=== PATIENT | female | born 1930 | race Caucasian/White ===

== ENCOUNTER 2018-08-27 12:00 | Inpatient (IN) | payer MEDICARE ==
[~2018-08-27] VITALS: Ht 157.5 cm; Wt 60.6 kg
[2018-08-27 12:25] LABS: BASOPHILS % (AUTO) 0 % (0-10); EOSINOPHILS % (AUTO) 0 % (0-10); HEMATOCRIT 47 % (35-52); HEMOGLOBIN 15.6 G/DL (11.5-16.0); LYMPHOCYTES # (AUTO) 0.4 X 10^3 (1.0-4.0); LYMPHOCYTES % (AUTO) 3 % (12-44); MEAN CORPUSCULAR HEMOGLOBIN 32 PG (25-34); MEAN CORPUSCULAR HGB CONC 34 G/DL (32-36); MEAN CORPUSCULAR VOLUME 95 FL (80-99); MEAN PLATELET VOLUME 11.3 FL (7.4-10.4); MONOCYTES # (AUTO) 1.5 X 10^3 (0.0-1.0); MONOCYTES % (AUTO) 9 % (0-12); NEUTROPHILS # (AUTO) 14.9 X 10^3 (1.8-7.8); NEUTROPHILS % (AUTO) 88 % (42-75); PLATELET COUNT 190 10^3/uL (130-400); RED BLOOD COUNT 4.92 10^6/uL (4.35-5.85); RED CELL DISTRIBUTION WIDTH 14.9 % (10.0-14.5); WHITE BLOOD COUNT 16.8 10^3/uL (4.3-11.0)
[2018-08-27] MEDS ORDERED: NS IV 1000 ML 1,000 ML IV SCH (12:30)
--- NOTE | 2018-08-27 12:31 | ED Fall/Injury ---
General Stated Complaint: FALL Source: patient, EMS Exam Limitations: physical impairment History of Present Illness Date Seen by Provider: Aug 27, 2018 Time Seen by Provider: 12:26 Initial Comments This 87-year-old white female was found on the floor at her home. EMS transported the patient. The placement seen the patient recently for frequent falls. The patient is confused and is unable offer helpful history. Indirectly the family indicated that they saw her last night and she was ambulatory according to the family. The police last saw the patient 2 days ago on Tuesday evening for a fall. The patient is confused and unable offer a helpful history. Allergies and Home Medications Allergies Coded Allergies: No Allergy Information Available (Unverified , 08/27/18) patient confused Patient Home Medication List Home Medication List Reviewed: Yes Review of Systems Review of Systems Constitutional: no symptoms reported Eyes: No Symptoms Reported Ears, Nose, Mouth, Throat: no symptoms reported Respiratory: no symptoms reported Cardiovascular: no symptoms reported Genitourinary: no symptoms reported : No Musculoskeletal: no symptoms reported Skin: no symptoms reported Psychiatric/Neurological: No Symptoms Reported Past Cdgnztj-Etkzjc-Pcsqbb Hx Past Med/Social Hx: Reviewed Nursing Past Med/Soc Hx Physical Exam Vital Signs Capillary Refill : Height, Weight, BMI Height: '" Weight: lbs. oz. kg; BMI Method: General Appearance: cachetic, thin, other (disheveled with soaked urine in the patient's clothing.) HEENT: other (patient demonstrates an area of occipital pressure with indentation where she has been lying on her back for a prolonged period) Neck: non-tender Cardiovascular: regular rate, rhythm Respiratory: lungs clear Gastrointestinal: normal bowel sounds, non tender, soft Back: other (there is a pressure sore located over approximately L3 that is 4 cm in diameter and extends well beyond the subcutaneous tissue. There is no bone palpable in the lumbar decubiti.) Extremities: normal range of motion Neurologic/Psychiatric: no motor/sensory deficits (the patient is able to move 4 extremities but is very weak. She is unable to stand or move herself affectively.) Skin: normal color, warm/dry Progress/Results/Core Measures Results/Orders Lab Results Laboratory Tests Test 08/27/18 12:12 08/27/18 12:43 Range/Units White Blood Count 16.8 H 4.3-11.0 10^3/uL Red Blood Count 4.92 4.35-5.85 10^6/uL Hemoglobin 15.6 11.5-16.0 G/DL Hematocrit 47 35-52 % Mean Corpuscular Volume 95 80-99 FL Mean Corpuscular Hemoglobin 32 25-34 PG Mean Corpuscular Hemoglobin Concent 34 32-36 G/DL Red Cell Distribution Width 14.9 H 10.0-14.5 % Platelet Count 190 130-400 10^3/uL Mean Platelet Volume 11.3 H 7.4-10.4 FL Neutrophils (%) (Auto) 88 H 42-75 % Lymphocytes (%) (Auto) 3 L 12-44 % Monocytes (%) (Auto) 9 0-12 % Eosinophils (%) (Auto) 0 0-10 % Basophils (%) (Auto) 0 0-10 % Neutrophils # (Auto) 14.9 H 1.8-7.8 X 10^3 Lymphocytes # (Auto) 0.4 L 1.0-4.0 X 10^3 Monocytes # (Auto) 1.5 H 0.0-1.0 X 10^3 Eosinophils # (Auto) 0.0 0.0-0.3 10^3/uL Basophils # (Auto) 0.0 0.0-0.1 10^3/uL Neutrophils % (Manual) 91 % Lymphocytes % (Manual) 2 % Monocytes % (Manual) 7 % Blood Morphology Comment NORMAL Sodium Level 145 135-145 MMOL/L Potassium Level 4.8 3.6-5.0 MMOL/L Chloride Level 107 98-107 MMOL/L Carbon Dioxide Level 17 L 21-32 MMOL/L Anion Gap 21 H 5-14 MMOL/L Blood Urea Nitrogen 64 H 7-18 MG/DL Creatinine 1.54 H 0.60-1.30 MG/DL Estimat Glomerular Filtration Rate 32 BUN/Creatinine Ratio 42 Glucose Level 90 70-105 MG/DL Lactic Acid Level 2.33 *H 0.50-2.00 MMOL/L Calcium Level 10.3 H 8.5-10.1 MG/DL Corrected Calcium 9.9 8.5-10.1 MG/DL Total Bilirubin 2.0 H 0.1-1.0 MG/DL Aspartate Amino Transf (AST/SGOT) 215 H 5-34 U/L Alanine Aminotransferase (ALT/SGPT) 88 H 0-55 U/L Alkaline Phosphatase 83 40-136 U/L Total Creatine Kinase 3512 H 29-168 U/L Myoglobin 5398.4 H 10.0-92.0 NG/ML Troponin I < 0.30 <0.30 NG/ML Total Protein 7.5 6.4-8.2 GM/DL Albumin 4.5 3.2-4.5 GM/DL Urine Color YELLOW Urine Clarity SLIGHTLY CLOUDY Urine pH 5 5-9 Urine Specific [place] 1.025 H 1.016-1.022 Urine Protein 2+ H NEGATIVE Urine Glucose (UA) NEGATIVE NEGATIVE Urine Ketones 1+ H NEGATIVE Urine Nitrite NEGATIVE NEGATIVE Urine Bilirubin NEGATIVE NEGATIVE Urine Urobilinogen NORMAL NORMAL MG/DL Urine Leukocyte Esterase 1+ H NEGATIVE Urine RBC (Auto) 2+ H NEGATIVE Urine RBC NONE /HPF Urine WBC 10-20 /HPF Urine Squamous Epithelial Cells 5-10 /HPF Urine Crystals NONE /LPF Urine Bacteria LARGE H /HPF Urine Casts PRESENT /LPF Urine Granular Casts 2-5 H /LPF Urine Mucus MODERATE H /LPF Urine Culture Indicated YES My Orders Orders - GENNY ARGUETA MD Cbc With Automated Diff (08/27/18 12:07) Comprehensive Metabolic Panel (08/27/18 12:07) Myoglobin Serum (08/27/18 12:07) Creatine Kinase (08/27/18 12:07) Troponin I (08/27/18 12:07) Ua Culture If Indicated (08/27/18 12:07) Ct Head/Cervical Spine Wo (08/27/18 12:07) Ekg Tracing (08/27/18 12:07) Blood Culture (08/27/18 12:07) Lactic Acid Analyzer (08/27/18 12:07) Ns Iv 1000 Ml (Sodium Chloride 0.9%) (08/27/18 12:30) Manual Differential (08/27/18 12:12) Urine Culture (08/27/18 12:43) Ceftriaxone For Iv Use (Rocephin For I (08/27/18 13:15) Ceftriaxone For Iv Use (Rocephin For I (08/27/18 13:30) Ns Iv 1000 Ml (Sodium Chloride 0.9%) (08/27/18 13:30) Progress Progress Note : Time: 13:35 Progress Note Patient's evaluation demonstrated evidence of rhabdomyolysis, urinary tract infection, and prerenal failure. A 2 L bolus of normal saline was ordered. 2 g Rocephin IV were given. Dr. Finch was kind enough to admit the patient. Departure Communication (Admissions) Time/Spoke to Admitting Phy: 13:39 Dr. Finch. Impression Primary Impression: Fall Qualified Codes: W19.XXXA - Unspecified fall, initial encounter Additional Impressions: Rhabdomyolysis Qualified Codes: M62.82 - Rhabdomyolysis UTI (urinary tract infection) Qualified Codes: N30.00 - Acute cystitis without hematuria Sepsis Qualified Codes: A41.9 - Sepsis, unspecified organism Disposition: ADMITTED INPATIENT Condition: Improved Admissions Decision to Admit Reason: Admit from ER (General) Decision to Admit/Date: Aug 27, 2018 Time/Decision to Admit Time: 13:41 Departure-Patient Inst. Referrals: NO,LOCAL PHYSICIAN (PCP/Family) Primary Care Physician GENNY ARGUETA MD Aug 27, 2018 12:31
[2018-08-27 12:43] LABS: ALANINE AMINOTRANSFERASE 88 U/L (0-55); ALBUMIN 4.5 GM/DL (3.2-4.5); ALKALINE PHOSPHATASE 83 U/L (40-136); BUN/CREATININE RATIO 42; CALCIUM 10.3 MG/DL (8.5-10.1); CARBON DIOXIDE 17 MMOL/L (21-32); CHLORIDE 107 MMOL/L (98-107); CREATINE KINASE 3512 U/L (29-168); CREATININE SERUM 1.54 MG/DL (0.60-1.30); GFR ESTIMATED 32; GLUCOSE 90 MG/DL (70-105); POTASSIUM 4.8 MMOL/L (3.6-5.0); SODIUM 145 MMOL/L (135-145); TOTAL PROTEIN 7.5 GM/DL (6.4-8.2)
[2018-08-27 12:48] LABS: BILIRUBIN,URINE NEGATIVE (NEGATIVE); CLARITY,URINE SLIGHTLY CLOUDY; COLOR,URINE YELLOW; GLUCOSE, URINE (UA) NEGATIVE (NEGATIVE); KETONES,URINE 1+ (NEGATIVE); LEUKOCYTE ESTERASE ,URINE 1+ (NEGATIVE); NITRITE,URINE NEGATIVE (NEGATIVE); PH,URINE 5 (5-9); PROTEIN,URINE 2+ (NEGATIVE); UROBILINOGEN,URINE NORMAL (NORMAL)
[2018-08-27 13:01] LABS: BACTERIA,URINE LARGE /HPF
[2018-08-27 13:05] LABS: LYMPHOCYTES % (MANUAL) 2 %; MONOCYTES % (MANUAL) 7 %; NEUTROPHILS % (MANUAL) 91 %; RBC MORPH NORMAL
[2018-08-27 13:12] LABS: MYOGLOBIN SERUM 5398.4 NG/ML (10.0-92.0)
[2018-08-27] MEDS ORDERED: cefTRIAXone FOR IV USE 2,000 MG in NS (IVPB) 50 ML IV ONE ×2 (13:15→13:30)
--- NOTE | 2018-08-27 13:31 | Diagnostic Imaging Report ---
PROCEDURE: CT head and CT cervical spine without contrast. TECHNIQUE: Multiple contiguous axial images were obtained through the brain and cervical spine without the use of intravenous contrast. Sagittal and coronal reformations through the cervical spine were then performed. INDICATION: Found down. No priors. FINDINGS: There is no intracranial hemorrhage. There is no hydrocephalus. No focal or generalized cerebral edema. There is no sulcal effacement. The basilar cisterns patent. There are no findings suggestive of an elevation to the intracranial pressures. There is no skull fracture deformity and the sinuses and orbits appeared nonacute. CT cervical spine: Advanced degenerative changes to the discs, endplates, facets and uncovertebral joints. There is left-sided facet ankylosis at the C4-C5 level. Cervical body heights are maintained. No facet joint dislocation. No cervical fracture or paravertebral hematoma. Degenerative changes result in at least moderate canal stenosis at C5-C6. The skull base appeared intact. There is no evidence for paravertebral hemorrhage. There are cervical carotid atherosclerotic vascular calcifications. Visualized thoracic inlet and pulmonary apices nonacute. IMPRESSION: CT head: No hemorrhage, edema, elevated pressures or acute intracranial pathology apparent at CT. CT cervical spine: Degenerative changes with stenosis, but no fracture or acute appearing abnormality. Dictated by: Dictated on workstation # [id number]
[2018-08-27] MEDS: NS IV 1000 ML 1,000 ML IV SCH ×4 (13:39→20:55)
[2018-08-27 15:00] VITALS: BP 138/78
[2018-08-27] MEDS ORDERED: LORazepam INJ 2 MG/ML (ATIVAN) VIAL IV PRN (15:15)
[2018-08-27] MEDS ORDERED: ACETAMINOPHEN 325 MG TABLET PO PRN (15:15)
[2018-08-27 19:00] VITALS: BP 110/73
[2018-08-27] MEDS ORDERED: ONDANSETRON 4 MG (ZOFRAN) ORAL DISSOLVE TAB PO PRN (19:45)
[2018-08-27 20:33] VITALS: BP 112/61
[2018-08-27 21:00] VITALS: BP 105/54
[2018-08-27 22:00] VITALS: BP 99/58
[2018-08-27 23:00] VITALS: BP 109/63
[2018-08-28] VITALS (16 sets, daily range): BP systolic 88–144; BP diastolic 49–73
[2018-08-28] MEDS: NS IV 1000 ML 1,000 ML IV SCH ×3 (03:30→12:47)
[2018-08-28 03:45] LABS: BASOPHILS % (AUTO) 0 % (0-10); EOSINOPHILS % (AUTO) 0 % (0-10); HEMATOCRIT 41 % (35-52); HEMOGLOBIN 13.4 G/DL (11.5-16.0); LYMPHOCYTES # (AUTO) 0.5 X 10^3 (1.0-4.0); LYMPHOCYTES % (AUTO) 4 % (12-44); MEAN CORPUSCULAR HEMOGLOBIN 32 PG (25-34); MEAN CORPUSCULAR HGB CONC 33 G/DL (32-36); MEAN CORPUSCULAR VOLUME 97 FL (80-99); MONOCYTES # (AUTO) 1.3 X 10^3 (0.0-1.0); MONOCYTES % (AUTO) 9 % (0-12); NEUTROPHILS # (AUTO) 13.1 X 10^3 (1.8-7.8); NEUTROPHILS % (AUTO) 88 % (42-75); PLATELET COUNT 54 10^3/uL (130-400); RED BLOOD COUNT 4.21 10^6/uL (4.35-5.85)
[2018-08-28 04:10] LABS: CALCIUM 8.6 MG/DL (8.5-10.1); CREATININE SERUM 0.94 MG/DL (0.60-1.30); MAGNESIUM 2.5 MG/DL (1.8-2.4); PHOSPHORUS 4.1 MG/DL (2.3-4.7); POTASSIUM 4.3 MMOL/L (3.6-5.0)
[2018-08-28] MEDS ORDERED: POTASSIUM CL 10MEQ/50ML IVPB 50 ML IV SCH (06:00)
[2018-08-28] MEDS ORDERED: KCL 20 MEQ TAB (K-DUR) PO SCH (06:00)
[2018-08-28] MEDS ORDERED: MAGNESIUM 1 GM/100 ML IVPB 100 ML IV SCH (06:00)
[2018-08-28] MEDS ORDERED: morphine INJ 4 MG/ML 1 ML (VIAL/SYRINGE) IVP PRN (07:00)
--- NOTE | 2018-08-28 07:00 | Pulmonary Consultation ---
History of Present Illness History of Present Illness Date of Consultation 08/28/18 06:54 Time Seen by Provider: 06:55 Date of Admission History of Present Illness 87yo poor historian presented to ED via EMS after being found on floor confused. The police last saw on Tuesday evening for a fall. Unable to obtain ROS secondary to patients confusion. While in the ED pt was found to have acute UTI with sepsis and rhabdomyolysis. I am consulted for ICU management. Allergies and Home Medications Allergies Coded Allergies: No Known Drug Allergies (Unverified , 08/27/18) Home Medications No Active Prescriptions or Reported Meds Past Xiolnnf-Uxwhgj-Eyohqw Hx Past Med/Social Hx: Reviewed Nursing Past Med/Soc Hx Patient Social History Alcohol Use: Denies Use Recreational Drug Use: No Smoking Status: Never a Smoker Recent Foreign Travel: No Contact w/Someone Who Travel: No Recent Infectious Disease Expo: No Recent Hopitalizations: No Physical Abuse: No Sexual Abuse: No Past Medical History Surgeries: No Respiratory: No Cardiac: No Neurological: No Genitourinary: No Gastrointestinal: No Musculoskeletal: No Endocrine: No HEENT: No Cancer: No Psychosocial: No Integumentary: No Blood Disorders: No Family Medical History Patient reports no known family medical history. Review of Systems Time Seen by Provider: 07:09 Sepsis Event Evaluation Height, Weight, BMI Height: 5'2.00" Weight: 125lbs. 6.0oz. 56.116835wx; 18.3 BMI Method:Estimated Exam Exam Vital Signs Date Time Temp Pulse Resp B/P (MAP) Pulse Ox O2 Delivery O2 Flow Rate FiO2 08/28/18 06:00 82 20 126/58 (80) 96 Room Air 08/28/18 05:00 82 20 116/54 (74) 94 Room Air 08/28/18 04:00 87 17 104/54 (71) 99 Room Air 08/28/18 04:00 97.5 08/28/18 04:00 100 Room Air 08/28/18 03:00 88 17 115/60 (78) 100 Room Air 08/28/18 02:00 89 20 112/54 (73) 100 Room Air 08/28/18 01:00 101 14 88/63 (71) 100 Room Air 08/28/18 01:00 102 08/28/18 00:18 88 22 107/63 (78) 90 Room Air 08/28/18 00:00 100 Room Air 08/28/18 00:00 88 22 107/63 (78) 90 Room Air 08/27/18 23:00 88 22 109/63 (78) 100 Room Air 08/27/18 22:00 89 28 99/58 (72) 100 Room Air 08/27/18 21:00 99 6 105/54 (71) 99 Room Air 08/27/18 20:33 95 24 112/61 (78) 99 Room Air 08/27/18 20:00 99 Room Air 08/27/18 20:00 97.3 08/27/18 19:00 98 9 110/73 (85) 97 Room Air 08/27/18 19:00 92 08/27/18 15:00 96.5 111 15 138/78 (98) 99 Room Air 08/27/18 15:00 Room Air 08/27/18 14:55 68 12 128/83 (98) 99 08/27/18 12:00 96.9 113 16 139/87 (104) 96 Room Air I & O 08/28/18 07:00 Intake Total 4050 ml Output Total 1250 ml Balance 2800 ml Height & Weight Height: 5'2.00" Weight: 125lbs. 6.0oz. 56.366637qz; 18.3 BMI Method:Estimated General Appearance: Other (currently sedated after ativan ) HEENT: PERRL/EOMI, Normal ENT Inspection, Pharynx Normal Neck: Full Range of Motion, Non Tender, Supple Respiratory: Chest Non Tender, Lungs Clear, Normal Breath Sounds, No Accessory Muscle Use, No Respiratory Distress Cardiovascular: Regular Rate, Rhythm, No Edema, No Gallop Capillary Refill: Less Than 3 Seconds Gastrointestinal: normal bowel sounds, non tender, soft Extremity: Normal Capillary Refill, Normal Inspection Skin: Normal Color, Warm/Dry Results Lab Laboratory Tests 08/27/18 12:12 08/28/18 03:18 Assessment/Plan Assessment/Plan s/p multiple falls -fall precautions -SW consulted Rhabdomyolysis -IVF and monitor Oversedation - secondary to Ativan -D/C ativan -will start Risperdal dementia Metabolic lactic acidosis -IVF and monitor UTI with severe sepsis -IVF -Continue Rocephin -Sepsis protocol Afib hx debility -PT/OT increased LFTs -monitor Hospice is consulted, will also consult SW for possible ECF placement. NEGRA BIDR DO Aug 28, 2018 07:00
--- NOTE | 2018-08-28 08:02 | Diagnostic Imaging Report ---
INDICATION: Rhabdomyolysis, fall, dyspnea. TECHNIQUE: Single frontal view of the chest. COMPARISON: None FINDINGS: Lung volumes are large. No focal consolidation is seen. There are scattered nodular densities in the lungs bilaterally, thought to represent calcified granulomas. No pleural effusion or pneumothorax is seen. There is moderate cardiomegaly. Aortic atherosclerosis is present. There are degenerative changes in the shoulders bilaterally with possible bilateral chronic rotator cuff injuries. IMPRESSION: 1. Large lung volumes with moderate cardiomegaly but no acute pulmonary abnormality seen. Dictated by: Dictated on workstation # [id number]
[2018-08-28] MEDS ORDERED: risperiDONE 0.25 MG (RisperDAL) TAB PO SCH (09:00)
[2018-08-28] MEDS ORDERED: LEVO75TA6 PO (09:33)
--- NOTE | 2018-08-28 12:04 | Occ Therapy Progress Note ---
Therapy Progress Note Protocol order received. Chart reviewed. Did check on pt. Pt. asleep. Will not wake for this therapist. Will not continue to disturb at this time. Will monitor as needed. Otherwise, OT services not warranted at this time. 1150 1, visit ANTWAN CHENG OT Aug 28, 2018 12:03
--- NOTE | 2018-08-28 12:13 | History & Physical-Hospitalist ---
History of Present Illness HPI/Chief Complaint The patient is an 87-year-old white female who was found down at her home. Is not known how long this may have been the case but her skin showed unstageable decubiti over the pelvis posteriorly. There are bruises about her legs below the knees. Apparently yesterday she was yelling out loudly. Today on my visit she does not respond at all safe when I palpated her tummy. She appeared largely interested in her down back down. During her stay in the emergency room she was found to have a myoglobin of 5398. Her white blood count at that point in time was 18,800 today it is 15,500. Hemoglobin was 15.6 today at 13.4. This would be compatible with improvement in her state of hydration. Date Seen 08/28/18 Time Seen by a Provider: 12:12 Attending Physician Stephanie Finch MD PCP Hi Mcclendon MD Referring Physician Date of Admission Aug 27, 2018 at 13:30 Home Medications & Allergies Home Medications Reviewed patient Home Medication Reconciliation performed by pharmacy medication reconciliations care technician and/or nursing. Patients Allergies have been reviewed. Allergies Allergies Coded Allergies No Known Drug Allergies (Prnlmxogma03/28/18) Past Mfxkwfz-Wzzdcc-Tdsotc Hx Past Med/Social Hx: Reviewed Nursing Past Med/Soc Hx Patient Social History Alcohol Use: Denies Use Recreational Drug Use: No Smoking Status: Never a Smoker Physical Abuse Screen: No Sexual Abuse: No Recent Foreign Travel: No Contact w/other who traveled: No Recent Hopitalizations: No Recent Infectious Disease Expo: No Past Medical History History of Blood Disorders: No Family History Patient reports no known family medical history. Review of Systems Constitutional: no symptoms reported, see HPI Physical Exam Physical Exam Vital Signs Vital Signs - First Documented 08/27/18 12:00 Temp 96.9 Pulse 113 Resp 16 B/P (MAP) 139/87 (104) Pulse Ox 96 O2 Delivery Room Air Capillary Refill : Less Than 3 Seconds Height, Weight, BMI Height: 5'2.00" Weight: 125lbs. 6.0oz. 56.340775lw; 18.3 BMI Method:Estimated General Appearance: Other (nonresponsive) Eyes: Bilateral Eye Normal Inspection HEENT: Other (lips and tongue are coated and crusty. The tongue, looks like old cracked leather.) Respiratory: Chest Non Tender, Lungs Clear, Normal Breath Sounds, No Accessory Muscle Use, No Respiratory Distress Cardiovascular: Irregularly Irregular Gastrointestinal: Non Tender Extremity: Other Neurologic/Psychiatric: Other (nonresponsive) Lymphatic: No Adenopathy Results Results/Procedures Labs Laboratory Tests 08/27/18 12:12 08/28/18 03:18 Patient resulted labs reviewed. Assessment/Plan Admission Diagnosis Rhabdomyolysis. 2.atrial fibrillation. 3.pressure sores sacral area. Clinical Quality Measures DVT/VTE Risk/Contraindication: Risk Factor Score Per Nursin RFS Level Per Nursing on Admit: 4+=Very High CHARANJIT ORTIZ MD Aug 28, 2018 12:13
[2018-08-28] MEDS ORDERED: FLU QUADRIvalent (5+ YOA) 2018-2019 (AFLURIA) 0.5 ML IM ONE (12:45)
[2018-08-28] MEDS ORDERED: CATHETER FLUSH 10 ML SYR IV PRN (13:00)
[2018-08-28] MEDS ORDERED: cefTRIAXone FOR IV USE 1,000 MG in NS (IVPB) 50 ML IV SCH (13:00)
[2018-08-28] MEDS: fentaNYL INJECTION 100 MCG/2 ML AMP IVP PRN (17:38)
--- NOTE | 2018-08-28 18:38 | Wound Care Assessment ---
Wound Care Assessment Date Seen by Provider: Aug 28, 2018 Time Seen by Provider: 18:32 Chief Complaint Sacral pressure ulcer. HPI The patient is an 87 year old female who has been confused, recently fell at home, and was found down. Evaluation in ER showed rhabdomyolysis and unstageable pressure ulcer of the sacral area. The patient is not able to give intelligible information regarding her medical condition. Dressings and therapies are ordered. Atrial fibrillation, hypothyroidism, dementia. Smoking Status: Never a Smoker Recreational Drug Use: No Alcohol Use: Denies Use Review of Systems Pulmonary: No Dyspnea Cardiovascular: No: Chest Pain Exam Vital Signs Date Time Temp Pulse Resp B/P (MAP) Pulse Ox O2 Delivery O2 Flow Rate FiO2 08/28/18 15:44 Nasal Cannula 2.00 08/28/18 13:00 83 08/28/18 11:50 98 08/28/18 11:00 25 123/62 (82) 08/28/18 04:00 97.5 Capillary Refill : Less Than 3 Seconds General Appearance: cachetic Extremities: other (Multiple bruises.) Skin: other (Sacral ulcer ---- 4.5 x 5.3 x 0.2 cm, base 75% moist black eschar, 25% dusky skin, thin dark drainage c/w necrosis.) Results Laboratory Tests 08/28/18 03:18: White Blood Count 15.0H, Red Blood Count 4.21L, Hemoglobin 13.4, Hematocrit 41, Mean Corpuscular Volume 97, Mean Corpuscular Hemoglobin 32, Mean Corpuscular Hemoglobin Concent 33, Red Cell Distribution Width 15.0H, Platelet Count 54L, Mean Platelet Volume 12.0H, Neutrophils (%) (Auto) 88H, Lymphocytes (%) (Auto) 4L, Monocytes (%) (Auto) 9, Eosinophils (%) (Auto) 0, Basophils (%) (Auto) 0, Neutrophils # (Auto) 13.1H, Lymphocytes # (Auto) 0.5L, Monocytes # (Auto) 1.3H, Eosinophils # (Auto) 0.0, Basophils # (Auto) 0.0, Sodium Level 146H, Potassium Level 4.3, Chloride Level 118#H, Carbon Dioxide Level 13L, Anion Gap 15H, Blood Urea Nitrogen 48H, Creatinine 0.94, Estimat Glomerular Filtration Rate 56, BUN/ Creatinine Ratio 51, Glucose Level 83, Calcium Level 8.6, Phosphorus Level 4.1, Magnesium Level 2.5H, Total Creatine Kinase 1365H Microbiology 08/27/18 Blood Culture - Preliminary, Resulted No growth 08/27/18 Urine Culture - Preliminary, Resulted Culture In Progress Microbiology 08/27/18 Blood Culture - Preliminary, Resulted No growth 08/27/18 Blood Culture - Preliminary, Resulted No growth 08/27/18 Urine Culture - Preliminary, Resulted Culture In Progress Assessment/Plan/Dx 1. Pressure ulcer, sacrum, unstageable, with extensive necrosis evident at the surface. 2. Dementia. 3. Poor nutrition. 4. Rhabdomyolysis. Plan: Low air loss mattress, frequent repositioning, Primo boots. LANRE MARKHAM MD Aug 28, 2018 18:38
[2018-08-29 00:30] VITALS: BP 119/70
[2018-08-29] MEDS: NS IV 1000 ML 1,000 ML IV SCH ×2 (01:49→15:17)
[2018-08-29 04:08] VITALS: BP 125/68
[2018-08-29 08:00] VITALS: BP 168/80
[2018-08-29 12:00] VITALS: BP 139/76
--- NOTE | 2018-08-29 14:57 | Progress Note-Hospitalist ---
Progress Note Progress Notes/Assess & Plan Date Seen 08/29/18 Time Seen by Provider: 14:53 Assessment & Plan The patient looks remarkably better today. She is not able to give any useful account of what caused her to end up on the floor at her home. She does speak in full sentences and answers questions. It is noted that her creatine kinase has fallen from 3512 [id number]. She reports to rather generalized skeletal discomfort. Physical exam: Her lips and tongue are much improved in appearance with no crusting on the lips and less fissuring on the tongue. Lungs are clear to auscultation. CV is regular. Abdomen is scaphoid. Lower extremities show 2+ edema pretibially and bilaterally. There are abrasions and scrapes along the tibia suggesting abrasions as from crawling Impression: Rhabdomyolysis. 2.dehydration. 3.considerable improvement from yesterday to today Focused Exam Lactate Level 08/27/18 12:12: Lactic Acid Level 2.33*H 08/27/18 14:18: Lactic Acid Level 1.20 08/27/18 17:25: Lactic Acid Level 1.03 CHARANJIT ORITZ MD Aug 29, 2018 14:57
--- NOTE | 2018-08-29 15:46 | Physical Therapy Evaluation ---
PT Evaluation-General Medical Diagnosis Admission Date Aug 27, 2018 at 13:30 Medical Diagnosis: rhabdolyolysis/falls Onset Date: Aug 27, 2018 Therapy Diagnosis Therapy Diagnosis: severe weakness/debility Height/Weight Height (Feet): 5 Height (Inches): 2.00 Weight (Pounds): 121 Weight (Ounces): 9.6 Precautions Precautions/Isolations: Fall Prevention, Pressure Ulcer Weight Bear Status Right Lower Extremity: Right Weight Bearing/Tolerated Left Lower Extremity: Left Weight Bearing/Tolerated Referral Physician: Radha Reason for Referral: Evaluation/Treatment Medical History Pertinent Medical History: Atrial Fib Current History EMS secondary to fall at home/noted multiple falls at home with increase confusion Reviewed History: Yes Social History Home: Single Level Current Living Status: Alone Prior/Core FIM Prior Level of Function Functional [place] Measure 0=Not Assessed/NA 4=Minimal Assistance 1=Total Assistance 5=Supervision or Setup 2=Maximal Assistance 6=Modified [place] 3=Moderate Assistance 7=Complete IndependenceIRFPAI Quality Coding Scale 6 Independent with activity with or without an assistive device 5 Patient requires set up or clean up by helper. Patient completes activity by themselves 4 Supervision or touching assist (CGA). Wheeler provide cues , steadying assist 3 The helper provides less than half the effort to complete the activity 2 The helper provides more than half the effort to complete the activity 1 Dependent. The helper does all the effort to complete an activity 7 Patient refused to complete or attempt activity 9 The patient did not perform the activity before the current illness or injury 87 Not attempted due to Medical conditions or safety concerns Bed Mobility: 6 Transfers (B,C,W/C) (FIM): 6 Gait: 6 PT Evaluation-Current Subjective Patient is very tearful and repeats, "Why won't God let me ." Pain Numeric Pain Scale: 10-Worst Possible Pain Location: Right, Left, Soft Tissue Location Body Site: Generalized Pain Description: Acute Objective Patient Orientation: Confused Problem Solving: Poor Attachments: Herndon Catheter, IV ROM/Strength ROM Lower Extremities noted edema bilateral/limited due to pain and edema Strength Lower Extremities 3-/5 grossly Integumentary/Posture Integumentary refer to nursing notes/multiple wounds, head, back, sacrum, buttocks, bilateral LE's Bladder Incontinence: Herndon Cath Posture functional Neuromuscular (Tone, Coordination, Reflexes) severely diminished coordination due to diagnosis Sensory Vision: Unable to Assess Hearing: Functional Sensation Right Lower Extremit: Impaired Sensation Left Lower Extremity: Impaired Transfers Functional [place] Measure 0=Not Assessed/NA 4=Minimal Assistance 1=Total Assistance 5=Supervision or Setup 2=Maximal Assistance 6=Modified [place] 3=Moderate Assistance 7=Complete [place] Transfers (B, C, W/C) (FIM): 1 Scootin Rollin Supine to/from Sit: 1 Sit to/from Stand: 1 sit to stand x 2 to FWW with noted retropulsion and inability to maintain stand Balance Sitting Static: Poor Sitting Dynamic: Poor Standing Static: Poor Standing Dynamic: Poor Assessment/Needs 87 y.o. female, will be seen short term by skilled PT to address functional strength and mobility to improve current LOF. Patient is extremely limited due to confusion and weakness. Rehab Potential: Guarded PT Math Tutor Goals Prison Goals PT Math Tutor Goals Time Frame: Sep 06, 2018 Transfers (B,C,W/C) (FIM): 3 Gait (FIM): 1 Gait distance (FIM): 1=up to 49 ft Distance: 5' Gait Level of Assist: 3 Gait Assistive Device: FWW PT Plan Problem List Problem List: Activity Tolerance, Functional Strength, Safety, Balance, Gait, Transfer, Bed Mobility Treatment/Plan Treatment Plan: Continue Plan of Care Treatment Plan: Bed Mobility, Education, Functional Activity Ramon, Functional Strength, Gait, Safety, Therapeutic Exercise, Transfers Treatment Duration: Sep 06, 2018 Frequency: 5 times per week Estimated Hrs Per Day: .25 hour per day Patient and/or Family Agrees t: Yes Discharge Recommendations Therapy D/C Recommendations: Jail Placement, Residential (TCU/NH) Time/GCodes Time In: 1520 Time Out: 1540 Total Billed Treatment Time: 20 Total Billed Treatment 1 visit EVLowC 20 min G Codes Necessary: GREGG Jean PT Aug 29, 2018 15:46
[2018-08-29 16:11] VITALS: BP 122/69
[2018-08-29 20:00] VITALS: BP 131/64
[2018-08-30 00:30] VITALS: BP 135/65
[2018-08-30 04:00] VITALS: BP 118/63
[2018-08-30] MEDS: NS IV 1000 ML 1,000 ML IV SCH ×2 (04:29→16:47)
[2018-08-30] MEDS: LEVOTHYROXINE 75 MCG (LEVOTHROID) TABLET PO SCH (06:46)
[2018-08-30 08:00] VITALS: BP 128/67
--- NOTE | 2018-08-30 09:49 | Physical Therapy Daily Note ---
PT Daily Note-Current Subjective Patient in bed pre tx, agrees to PT reluctantly, no complaints of pain. Patient has a large stain on her pillow from a wound on the back of her head. Appearance Patient in wheelchair post tx, patient is going to have a shower with nursing. Mental Status Patient Orientation: Person, Confused Attachments: Oxygen, IV Transfers Functional [place] Measure 0=Not Assessed/NA 4=Minimal Assistance 1=Total Assistance 5=Supervision or Setup 2=Maximal Assistance 6=Modified [place] 3=Moderate Assistance 7=Complete IndependenceIRFPAI Quality Coding Scale 6 Independent with activity with or without an assistive device 5 Patient requires set up or clean up by helper. Patient completes activity by themselves 4 Supervision or touching assist (CGA). [place] provide cues , steadying assist 3 The helper provides less than half the effort to complete the activity 2 The helper provides more than half the effort to complete the activity 1 Dependent. The helper does all the effort to complete an activity 7 Patient refused to complete or attempt activity 9 The patient did not perform the activity before the current illness or injury 88 Not attempted due to Medical conditions or safety concerns Transfers (B, C, W/C) (FIM): 2 Scootin Rollin Supine to/from Sit: 2 Sit to/from Stand: 2 Bed to/from Chair: 2 Patient max assist for bed mobility and transfers, she needs a lot of encouragement to participate and to help with her arms. Patient was able to stand at the edge of the bed for about 5 min. Weight Bearing Right Lower Extremity: Right Weight Bearing/Tolerated Left Lower Extremity: Left Weight Bearing/Tolerated Gait Training Gait (FIM): 1 Distance: 2' Gait Level of Assist: 2 Gait Persons Needed: 2 Gait Assistive Device: FWW Patient was able to step a few steps toward the head of the bed with max assist Treatments bed mobility and transfers, ambulation Assessment Current Status: Fair Progress improved bed mobility and transfers from dependent to max assist PT Mcfp Goals Mcfp Goals PT Mcfp Goals Time Frame: Sep 06, 2018 Transfers (B,C,W/C) (FIM): 3 Gait (FIM): 1 Gait distance (FIM): 1=up to 49 ft Distance: 5' Gait Level of Assist: 3 Gait Assistive Device: FWW PT Plan Problem List Problem List: Activity Tolerance, Functional Strength, Safety, Balance, Gait, Transfer, Bed Mobility, ROM Treatment/Plan Treatment Plan: Continue Plan of Care Treatment Plan: Bed Mobility, Education, Functional Activity Ramon, Functional Strength, Gait, Safety, Therapeutic Exercise, Transfers Treatment Duration: Sep 06, 2018 Frequency: 5 times per week Estimated Hrs Per Day: .25 hour per day Patient and/or Family Agrees t: Yes Safety Risks/Education Patient Education: Gait Training, Transfer Techniques, Correct Positioning, Safety Issues Teaching Recipient: Patient Teaching Methods: Demonstration, Discussion Response to Teaching: Reinforcement Needed Time/GCodes Time In: 924 Time Out: 944 Total Billed Treatment Time: 20 Total Billed Treatment 1 visit FA 20' FELIPA VIGIL PT Aug 30, 2018 09:49
[2018-08-30 10:37] LABS: BASOPHILS % (AUTO) 0 % (0-10); EOSINOPHILS # (AUTO) 0.1 10^3/uL (0.0-0.3); EOSINOPHILS % (AUTO) 1 % (0-10); HEMATOCRIT 44 % (35-52); HEMOGLOBIN 14.5 G/DL (11.5-16.0); LYMPHOCYTES # (AUTO) 0.9 X 10^3 (1.0-4.0); LYMPHOCYTES % (AUTO) 10 % (12-44); MEAN CORPUSCULAR HEMOGLOBIN 32 PG (25-34); MEAN CORPUSCULAR HGB CONC 33 G/DL (32-36); MEAN CORPUSCULAR VOLUME 96 FL (80-99); MEAN PLATELET VOLUME 10.6 FL (7.4-10.4); MONOCYTES # (AUTO) 0.6 X 10^3 (0.0-1.0); MONOCYTES % (AUTO) 7 % (0-12); NEUTROPHILS # (AUTO) 7.7 X 10^3 (1.8-7.8); NEUTROPHILS % (AUTO) 83 % (42-75); PLATELET COUNT 167 10^3/uL (130-400); RED BLOOD COUNT 4.61 10^6/uL (4.35-5.85); RED CELL DISTRIBUTION WIDTH 15.1 % (10.0-14.5); WHITE BLOOD COUNT 9.3 10^3/uL (4.3-11.0)
[2018-08-30 10:59] LABS: ALANINE AMINOTRANSFERASE 68 U/L (0-55); ALBUMIN 3.4 GM/DL (3.2-4.5); ALKALINE PHOSPHATASE 72 U/L (40-136); BILIRUBIN,TOTAL 1.3 MG/DL (0.1-1.0); BUN/CREATININE RATIO 30; CALCIUM 8.8 MG/DL (8.5-10.1); CARBON DIOXIDE 23 MMOL/L (21-32); CHLORIDE 115 MMOL/L (98-107); CREATINE KINASE 110 U/L (29-168); CREATININE SERUM 0.69 MG/DL (0.60-1.30); GFR ESTIMATED > 60; GLUCOSE 103 MG/DL (70-105); POTASSIUM 3.7 MMOL/L (3.6-5.0); SODIUM 145 MMOL/L (135-145); TOTAL PROTEIN 5.8 GM/DL (6.4-8.2)
[2018-08-30 12:00] VITALS: BP 134/60
[2018-08-30] MEDS: ACETAMINOPHEN 500 MG TAB (TYLENOL) PO PRN (12:55)
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
[2018-08-30 16:00] VITALS: BP 119/61
[2018-08-30 19:00] VITALS: BP 132/71
[2018-08-31 00:09] VITALS: BP 117/67
[2018-08-31] MEDS: fentaNYL INJECTION 100 MCG/2 ML AMP IVP PRN (01:08)
[2018-08-31 04:10] VITALS: BP 119/73
[2018-08-31] MEDS: NS IV 1000 ML 1,000 ML IV SCH ×2 (05:28→18:45)
[2018-08-31] MEDS: LEVOTHYROXINE 75 MCG (LEVOTHROID) TABLET PO SCH (06:36)
[2018-08-31 08:00] VITALS: BP 127/72
--- NOTE | 2018-08-31 10:50 | Physical Therapy Daily Note ---
PT Daily Note-Current Subjective Patient in bed pre tx, is reluctant to participate in PT, states she hurts all over. Appearance Patient in recliner post tx with legs elevated, nursing in room. Mental Status Patient Orientation: Person, Confused Attachments: IV Transfers Functional [place] Measure 0=Not Assessed/NA 4=Minimal Assistance 1=Total Assistance 5=Supervision or Setup 2=Maximal Assistance 6=Modified [place] 3=Moderate Assistance 7=Complete IndependenceIRFPAI Quality Coding Scale 6 Independent with activity with or without an assistive device 5 Patient requires set up or clean up by helper. Patient completes activity by themselves 4 Supervision or touching assist (CGA). [place] provide cues , steadying assist 3 The helper provides less than half the effort to complete the activity 2 The helper provides more than half the effort to complete the activity 1 Dependent. The helper does all the effort to complete an activity 7 Patient refused to complete or attempt activity 9 The patient did not perform the activity before the current illness or injury 88 Not attempted due to Medical conditions or safety concerns Transfers (B, C, W/C) (FIM): 1 Scootin Rollin Supine to/from Sit: 1 Sit to/from Stand: 2 Bed to/from Chair: 2 Weight Bearing Right Lower Extremity: Right Weight Bearing/Tolerated Left Lower Extremity: Left Weight Bearing/Tolerated Treatments bed mobility and transfers, patient would not participate in LE exercises, she states she does them on her own Assessment Current Status: Poor Progress Patient participates very little with transfers PT Short Term Goals Short Term Goals Transfers (B,C,W/C) (FIM): 3 PT Intermediate Goals Intermediate Goals PT Intermediate Goals Time Frame: Sep 06, 2018 Transfers (B,C,W/C) (FIM): 3 Gait (FIM): 1 Gait distance (FIM): 1=up to 49 ft Distance: 5' Gait Level of Assist: 3 Gait Assistive Device: FWW PT Plan Problem List Problem List: Activity Tolerance, Functional Strength, Safety, Balance, Gait, Transfer, Bed Mobility, ROM Treatment/Plan Treatment Plan: Continue Plan of Care Treatment Plan: Bed Mobility, Education, Functional Activity Ramon, Functional Strength, Gait, Safety, Therapeutic Exercise, Transfers Treatment Duration: Sep 06, 2018 Frequency: 5 times per week Estimated Hrs Per Day: .25 hour per day Patient and/or Family Agrees t: Yes Safety Risks/Education Patient Education: Transfer Techniques, Correct Positioning, Safety Issues Teaching Recipient: Patient Teaching Methods: Demonstration, Discussion Response to Teaching: Reinforcement Needed Time/GCodes Time In: 1025 Time Out: 1140 Total Billed Treatment Time: 15 Total Billed Treatment 1 visit FA FELIPA WRIGHT PT Aug 31, 2018 10:50
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
[2018-08-31] MEDS ORDERED: ACET-77 PO (11:46)
--- NOTE | 2018-08-31 11:47 | Discharge Inst-Skilled Nursing ---
Discharge Inst-Skilled NF Patient Instructions Patient Problems: Fall s/p rhabdo Frail status Consult/Follow Up/Orders Follow Up Appt.: Dr Mcclendon in 1 week Skilled NF Admit to: Via [facility] [place] Certification ([facility]) I certify that SNF services are required to be given on an inpatient basis because of the above named patient's need for longterm care on a continuing basis for the conditions(s) for which he/she was receiving inpatient hospital services prior to his/her transfer to the SNF. [facility]itent[facility] Facility Order: Nursing Services, [facility] [place] [facility]-Evaluate & Treat, Physical Therapy-Evaluate & Treat Discharge Diet: No Restrictions Daily Activity as Tolerated: Yes New & Resume Previous Orders Melania Rosales Aug 31, 2018 11:46 Pneu Vac Indicated: Yes MELANIA ROSALES DO Aug 31, 2018 11:47
[2018-08-31 12:00] VITALS: BP 137/69
--- NOTE | 2018-08-31 14:00 | Occupational Ther Daily Note ---
OT Current Status-Daily Note Subjective Pt. does not report pain this session. Does state that she has difficulty with her grasp. Appearance Pt. is up in chair. Agrees to work with OT. Mental Status/Objective Patient Orientation: Person (Pt. states that she remembers this clinician, but does not remember what she does.) Functional [place] Measure 0=Not Assessed/NA 4=Minimal Assistance 1=Total Assistance 5=Supervision or Setup 2=Maximal Assistance 6=Modified [place] 3=Moderate Assistance 7=Complete [place] Attachments: IV Other Treatment Pt. is up in chair. States that she has already eaten. OT asks her if she fed herself. States that she did not because her arms weren't long enough. PT allows OT to provided PROM to bilateral UE. Completed gentle PROM to bilateral shoulders, elbows, wrists, fingers in all planes. Completed shoulder flexion x 10 reps passively. Noted right shoulder able to achieve 90 degrees, and left shoulder able to achieve 120 degrees. Pt. is able to begin actively flexing elbows fully, but tires quickly and slowly quits ranging in full range. Pt. is able to demonstrate finger flexion with fist, but states that she has difficulty holding utensils to eat with. OT leaves room and does come back at later time with built up fork and foam handle for spoon to facilitate functional grasp with utensils. OT encourages pt. to hold water mug to bring to mouth for drink. Pt. closes eyes and has difficulty participating in this task. OT brings straw to mouth and pt. drinks. Pt. is educated about using pillows again this date under elbows to prop up arms to assist with feeding. Pt. is also encouraged to hold one thing at a time in one hand to eat with the other hand if the table is too high to reach to scoop food. Pt. verbalizes understanding. Education OT Patient Education: Correct positioning, Modified ADL techniques, Progress toward Goal/Update tx plan, Purpose of tx/functional activities, Reviewed precautions, Rehab process, Use of adapted equipment Teaching Recipient: Patient Teaching Methods: Demonstration, Discussion Response to Teaching: Verbalize Understanding OT Short Term Goals Short Term Goals Time Frame: Sep 06, 2018 Eating(FIM): 4 Grooming(FIM): 3 Toileting(FIM): 3 Transfers (B,C,W/C) (FIM): 3 Toilet/Commode Transfer(FIM): 3 Additional Short Term Goals: 1-Demonstrate ADL Tasks, 2-Verbalize Understanding , 3-ImproveStrength/Ramon 1=Demonstrate adherence to instructed precautions during ADL tasks. 2=Patient will verbalize/demonstrate understanding of assistive devices/ modifications for ADL. 3=Patient will improve strength/tolerance for activity to enable patient to perform ADL's. OT Detention Goals Detention Goals Time Frame: Sep 13, 2018 Eating (FIM): 5 Grooming(FIM): 4 Toileting(FIM): 5 Transfers (B,C,W/C) (FIM): 5 Toilet/Commode Transfer(FIM): 5 Additional Goals: 1-Demonstrate ADL Tasks, 2-Verbalize Understanding, 3- ImproveStrength/Ramon 1=Demonstrate adherence to instructed precautions during ADL tasks. 2=Patient will verbalize/demonstrate understanding of assistive devices/ modifications for ADL. 3=Patient will improve strength/tolerance for activity to enable patient to perform ADL's. OT Education/Plan Problem List/Assessment Assessment: Decreased Activ Tolerance, Decreased UE Strength, Impaired Cognition, Impaired Coordination, Impaired I ADL's, Impaired Self-Care Skills, Restricted Funct UE ROM Discharge Recommendations Plan/Recommendations: Continue POC Therapy D/C Recommendations: 24 hr Supervision Treatment Plan/Plan of Care Treatment,Training & Education: Yes Patient would benefit from OT for education, treatment and training to promote independence in ADL's, mobility, safety and/or upper extremity function for ADL' s. Plan of Care: ADL Retraining, Functional Mobility, UE Funct Exercise/Act Treatment Duration: Sep 13, 2018 Frequency: 5 times per week Estimated Hrs Per Day: .25 hour per day Agreement: Yes Rehab Potential: Guarded Time/GCodes Start Time: 11:15 Stop Time: 12:00 Total Time Billed (hr/min): 25 Billed Treatment Time 3249-1135 1, Ex x 15minutes 6206-1902 1, ADL x 10minutes ANTWAN CHENG OT Aug 31, 2018 14:00
[2018-08-31 15:55] VITALS: BP 135/65
[2018-08-31 20:59] VITALS: BP 128/72
[2018-08-31] MEDS: ACETAMINOPHEN 500 MG TAB (TYLENOL) PO PRN (21:54)
[2018-09-01 00:21] VITALS: BP 124/64
[2018-09-01] MEDS: fentaNYL INJECTION 100 MCG/2 ML AMP IVP PRN (00:32)
[2018-09-01 04:05] VITALS: BP 129/66
[2018-09-01] MEDS: LEVOTHYROXINE 75 MCG (LEVOTHROID) TABLET PO SCH (05:39)
[2018-09-01 08:00] VITALS: BP 143/83
--- NOTE | 2018-09-01 10:13 | Occupational Ther Daily Note ---
OT Current Status-Daily Note Subjective Pt alert, however required encouragement to participate in OT services this date. Pain Numeric Pain Scale: 2 Location Body Site: Back Mental Status/Objective Functional Bruning Measure 0=Not Assessed/NA 4=Minimal Assistance 1=Total Assistance 5=Supervision or Setup 2=Maximal Assistance 6=Modified Bruning 3=Moderate Assistance 7=Complete Bruning ADL-Treatment Eating (FIM): 5 (Pt was having difficulty with self feeding due to positioning deficits and decreased seaman officer strength. Pt assisted with re-positioning to improve her safety and independence with self feeding tasks. Pt educated on use of built up utensil to improve her ability to perform self feeding tasks. ) Other Treatment Pt participated in gentle AROM through gross UE planes of motion to tolerated range. Pt with limited AROM through shoulder flexion and abduction. Pt tolerated PROM through normal planes of motion through BUE shoulder planes of motion. Education OT Patient Education: Correct positioning Teaching Recipient: Patient OT Short Term Goals Short Term Goals Time Frame: Sep 06, 2018 Eating(FIM): 4 Grooming(FIM): 3 Toileting(FIM): 3 Transfers (B,C,W/C) (FIM): 3 Toilet/Commode Transfer(FIM): 3 Additional Short Term Goals: 1-Demonstrate ADL Tasks, 2-Verbalize Understanding , 3-ImproveStrength/Ramon 1=Demonstrate adherence to instructed precautions during ADL tasks. 2=Patient will verbalize/demonstrate understanding of assistive devices/ modifications for ADL. 3=Patient will improve strength/tolerance for activity to enable patient to perform ADL's. OT Recruiting Scheduler Goals Mcc Goals Time Frame: Sep 13, 2018 Eating (FIM): 5 Grooming(FIM): 4 Toileting(FIM): 5 Transfers (B,C,W/C) (FIM): 5 Toilet/Commode Transfer(FIM): 5 Additional Goals: 1-Demonstrate ADL Tasks, 2-Verbalize Understanding, 3- ImproveStrength/Ramon 1=Demonstrate adherence to instructed precautions during ADL tasks. 2=Patient will verbalize/demonstrate understanding of assistive devices/ modifications for ADL. 3=Patient will improve strength/tolerance for activity to enable patient to perform ADL's. OT Education/Plan Discharge Recommendations Plan/Recommendations: Continue POC Treatment Plan/Plan of Care Patient would benefit from OT for education, treatment and training to promote independence in ADL's, mobility, safety and/or upper extremity function for ADL' s. Plan of Care: ADL Retraining, Functional Mobility, UE Funct Exercise/Act Treatment Duration: Sep 13, 2018 Frequency: 5 times per week Estimated Hrs Per Day: .25 hour per day Agreement: Yes Rehab Potential: Guarded Time/GCodes Start Time: 09:43 Stop Time: 10:12 Total Time Billed (hr/min): 29 Billed Treatment Time ADL1, TE1 YAYO EVERETT OT Sep 01, 2018 10:13
--- NOTE | 2018-09-01 11:39 | Discharge Summary-Hospitalist ---
Diagnosis/Chief Complaint Date of Admission Aug 27, 2018 at 13:30 Date of Discharge Discharge Date: Sep 01, 2018 Admission Diagnosis Rhabdomyolysis. 2.atrial fibrillation. 3.pressure sores sacral area. Discharge Diagnosis (1) Sepsis Status: Resolved (2) Fall Status: Acute (3) Rhabdomyolysis Status: Resolved (4) UTI (urinary tract infection) Status: Acute Discharge Summary Discharge Physical Exam Allergies: Coded Allergies: No Known Drug Allergies (Unverified , 08/27/18) Vitals & I&Os Vital Signs Date Time Temp Pulse Resp B/P (MAP) Pulse Ox O2 Delivery O2 Flow Rate FiO2 09/01/18 08:00 98.6 85 18 143/83 (103) 96 Room Air 08/31/18 12:00 1.00 General Appearance: No Apparent Distress, WD/WN, Cachetic Respiratory: Chest Non Tender, Lungs Clear, Normal Breath Sounds, No Accessory Muscle Use, No Respiratory Distress Cardiovascular: Regular Rate, Rhythm, No Edema, No Gallop, No JVD, No Murmur, Normal Peripheral Pulses Neurologic/Psychiatric: Alert, Oriented x3, No Motor/Sensory Deficits, Normal Mood/Affect Hospital Course Hospital course: patient was admitted for sepsis from fall and UTI while lying in her feces for an undetermined amount of time. Social issues were managed by SW. IV abx maintained along with supportive care. She was so weak she required NHP which I suspect will be long-term. Pt was DC in improved condition but overall very debilitated. Labs (last 24 hrs) Microbiology 08/27/18 Blood Culture - Final, Complete No growth 08/27/18 MRSA Screen - Final, Complete MRSA not isolated 08/27/18 Urine Culture - Final, Complete Strep anginosus Lactobacillus species Patient resulted labs reviewed. Discussion & Recommendations Discharge Planning: <30 minutes discharge planning Discharge Home Medications: Active Scripts Active Acetaminophen 500 Mg Tablet 500 Mg PO Q6H PRN 30 Days Reported Levothyroxine Sodium 75 Mcg Tablet 75 Mcg PO DAILY Instructions to patient/family Please see electronic discharge instructions given to patient. Clinical Quality Measures DVT/VTE Risk/Contraindication: Risk Factor Score Per Nursin RFS Level Per Nursing on Admit: 4+=Very High Problem Qualifiers (1) Sepsis: Sepsis type: sepsis due to unspecified organism Qualified Codes: A41.9 - Sepsis, unspecified organism (2) Fall: Encounter type: initial encounter Qualified Codes: W19.XXXA - Unspecified fall, initial encounter (3) Rhabdomyolysis: Rhabdomyolysis type: non-traumatic Qualified Codes: M62.82 - Rhabdomyolysis (4) UTI (urinary tract infection): Urinary tract infection type: acute cystitis Hematuria presence: without hematuria Qualified Codes: N30.00 - Acute cystitis without hematuria IMER NIX DO Sep 01, 2018 11:39
== END 2018-09-01 13:57 | DRG 872 ==
LOC: ER 12:11 → ICU 13:30 → EEVIPCON 13:30 → 4TH 08-28 17:55
PROVIDERS: ADMIT Family Medicine; ATTEND Family Medicine
DX: A41.9 Sepsis, unspecified organism (principal); N30.00 Acute cystitis without hematuria; M62.82 Rhabdomyolysis; E87.2 Acidosis; R64 Cachexia; I96 Gangrene, not elsewhere classified; L89.150 Pressure ulcer of sacral region, unstageable; E86.0 Dehydration; Z66 Do not resuscitate; F03.90 Unspecified dementia, unspecified severity, without behavioral disturbance, psychotic disturbance, mood disturbance, and anxiety; S80.11XA Contusion of right lower leg, initial encounter; S80.12XA Contusion of left lower leg, initial encounter; R53.81 Other malaise; I48.91 Unspecified atrial fibrillation; E03.9 Hypothyroidism, unspecified; B95.4 Other streptococcus as the cause of diseases classified elsewhere; R40.0 Somnolence; T42.4X5A Adverse effect of benzodiazepines, initial encounter; W19.XXXA Unspecified fall, initial encounter
CPT/HCPCS: 36415; 51702; 70450; 71045; 72125; 80048; 80053; 81000; 82550; 83605; 83735; 83874; 84100; 84484; 85007; 85025; 85027; 87040; 87077; 87081; 87088; 93005; 94760; 96361; 96365

== ENCOUNTER → 2018-09-25 | Outpatient (CLI) | payer MEDICARE ==
[~2018-09-25] MED LIST: ACET-77 PO; ALPR0.25 PO; LEVO75TA6 PO
== END ==
LOC: WOUNDCARE 13:51
PROVIDERS: ATTEND Nurse Practitioner
DX: L89.153 Pressure ulcer of sacral region, stage 3 (principal); S01.00XA Unspecified open wound of scalp, initial encounter
CPT/HCPCS: 99213

== ENCOUNTER 2018-09-26 12:10 | Emergency (ER) | payer MEDICARE ==
[~2018-09-26] VITALS: Ht 162.6 cm; Wt 48.1 kg
[~2018-09-26 12:10] MED LIST changes: -ALPR0.25 PO
[2018-09-26] MEDS ORDERED: ALPRAZolam 0.5 MG (XANAX) TAB ONE (12:37)
[2018-09-26 13:34] LABS: BASOPHILS % (AUTO) 1 % (0-10); EOSINOPHILS # (AUTO) 0.1 10^3/uL (0.0-0.3); EOSINOPHILS % (AUTO) 2 % (0-10); HEMATOCRIT 44 % (35-52); HEMOGLOBIN 14.9 G/DL (11.5-16.0); LYMPHOCYTES % (AUTO) 13 % (12-44); MEAN CORPUSCULAR HEMOGLOBIN 31 PG (25-34); MEAN CORPUSCULAR HGB CONC 34 G/DL (32-36); MEAN CORPUSCULAR VOLUME 93 FL (80-99); MEAN PLATELET VOLUME 9.6 FL (7.4-10.4); MONOCYTES # (AUTO) 0.8 X 10^3 (0.0-1.0); MONOCYTES % (AUTO) 11 % (0-12); NEUTROPHILS # (AUTO) 5.6 X 10^3 (1.8-7.8); NEUTROPHILS % (AUTO) 74 % (42-75); PLATELET COUNT 342 10^3/uL (130-400); RED BLOOD COUNT 4.78 10^6/uL (4.35-5.85); RED CELL DISTRIBUTION WIDTH 14.8 % (10.0-14.5); WHITE BLOOD COUNT 7.5 10^3/uL (4.3-11.0)
[2018-09-26 13:55] LABS: ALANINE AMINOTRANSFERASE 15 U/L (0-55); ALBUMIN 3.7 GM/DL (3.2-4.5); ALKALINE PHOSPHATASE 103 U/L (40-136); BILIRUBIN,TOTAL 0.8 MG/DL (0.1-1.0); BUN/CREATININE RATIO 24; CALCIUM 9.8 MG/DL (8.5-10.1); CARBON DIOXIDE 22 MMOL/L (21-32); CHLORIDE 105 MMOL/L (98-107); GFR ESTIMATED > 60; GLUCOSE 101 MG/DL (70-105); POTASSIUM 4.7 MMOL/L (3.6-5.0); SODIUM 140 MMOL/L (135-145); TOTAL PROTEIN 6.8 GM/DL (6.4-8.2)
[2018-09-26] MEDS ORDERED: ALPR0.25 PO (15:09)
--- NOTE | 2018-09-26 15:09 | ED General ---
General Chief Complaint: Psych/Social Disorder Stated Complaint: PANIC ATTACK Nursing Triage Note: PT ARRIVED FORM NH W CO OF ANXIETY AND PANIC ATTACK. PT IS TEARFUL AT THIS X Nursing Sepsis Screen: No Definite Risk History of Present Illness Date Seen by Provider: Sep 26, 2018 Time Seen by Provider: 12:30 Initial Comments 88-year-old female presents for anxiety. She is alert, coherent and reports that she wishes she could return to her home. She has no family members that are able to assist with her care there. She is a resident at [facility]. She was recently discontinued on her Xanax. She is being treated for a pressure ulcer to her coccyx by wound care. Timing/Duration: 1 Hour Severity: Mild Associated Systoms: Denies Symptoms Allergies and Home Medications Allergies Coded Allergies: No Known Drug Allergies (Unverified , 08/27/18) Home Medications Acetaminophen 500 Mg Tablet, 500 MG PO Q6H PRN for PAIN-MILD Prescribed by: IMER NIX on 08/31/18 1146 Alprazolam 0.25 Mg Tablet, 0.25 MG PO Q6H Prescribed by: ADRIEL BENITO on 09/26/18 1509 Levothyroxine Sodium 75 Mcg Tablet, 75 MCG PO DAILY, (Reported) Patient Home Medication List Home Medication List Reviewed: Yes Review of Systems Review of Systems Constitutional: no symptoms reported, see HPI Skin: see HPI, other (pressure ulcer to coccyx) Psychiatric/Neurological: See HPI, Anxiety Past Qyaqqmz-Szwqpa-Ibjbah Hx Past Med/Social Hx: Reviewed Nursing Past Med/Soc Hx Patient Social History Alcohol Use: Denies Use Recreational Drug Use: No Smoking Status: Never a Smoker Recent Foreign Travel: No Contact w/Someone Who Travel: No Recent Infectious Disease Expo: No Recent Hopitalizations: Yes Physical Abuse: No Sexual Abuse: No Past Medical History Surgeries: No Respiratory: No Cardiac: No Neurological: No Genitourinary: No Gastrointestinal: No Musculoskeletal: No Endocrine: No HEENT: No Cancer: No Psychosocial: No Integumentary: No Blood Disorders: No Family Medical History Patient reports no known family medical history. Physical Exam Vital Signs Vital Signs - First Documented 09/26/18 12:15 Temp 97.2 Pulse 102 Resp 18 B/P (MAP) 137/104 (115) Pulse Ox 97 Capillary Refill : Less Than 3 Seconds Height, Weight, BMI Height: 5'4.00" Weight: 106lbs. 11.2oz. 48.958345os; 18.3 BMI Method:Stated General Appearance: No Apparent Distress, WD/WN, Anxious Neck: Full Range of Motion, Normal Inspection, Non Tender, Supple Respiratory: Chest Non Tender, Lungs Clear, Normal Breath Sounds Cardiovascular: Regular Rate, Rhythm, No Edema, No Murmur, Normal Peripheral Pulses Gastrointestinal: Normal Bowel Sounds, Non Tender, Soft Extremity: Normal Capillary Refill, Normal Inspection, Normal Range of Motion, Non Tender Neurologic/Psychiatric: Alert, Oriented x3, Other (patient tearful and anxious at times) Skin: Normal Color, Warm/Dry, Other (stage II pressure ulcer to the coccyx. ) Progress/Results/Core Measures Suspected Sepsis Recent Fever Within 48 Hours: No Infection Criteria Present: None New/Unexplained Altered Menta: No Sepsis Screen: No Definite Risk SIRS Temperature:97.2 Pulse: 102 Respiratory Rate: 18 Laboratory Tests 09/26/18 13:27: White Blood Count 7.5 Blood Pressure 137 /104 Mean: 115 Laboratory Tests 09/26/18 13:27: Creatinine 0.70, Platelet Count 342, Total Bilirubin 0.8 Results/Orders Lab Results Laboratory Tests Test 09/26/18 13:27 Range/Units White Blood Count 7.5 4.3-11.0 10^3/uL Red Blood Count 4.78 4.35-5.85 10^6/uL Hemoglobin 14.9 11.5-16.0 G/DL Hematocrit 44 35-52 % Mean Corpuscular Volume 93 80-99 FL Mean Corpuscular Hemoglobin 31 25-34 PG Mean Corpuscular Hemoglobin Concent 34 32-36 G/DL Red Cell Distribution Width 14.8 H 10.0-14.5 % Platelet Count 342 130-400 10^3/uL Mean Platelet Volume 9.6 7.4-10.4 FL Neutrophils (%) (Auto) 74 42-75 % Lymphocytes (%) (Auto) 13 12-44 % Monocytes (%) (Auto) 11 0-12 % Eosinophils (%) (Auto) 2 0-10 % Basophils (%) (Auto) 1 0-10 % Neutrophils # (Auto) 5.6 1.8-7.8 X 10^3 Lymphocytes # (Auto) 1.0 1.0-4.0 X 10^3 Monocytes # (Auto) 0.8 0.0-1.0 X 10^3 Eosinophils # (Auto) 0.1 0.0-0.3 10^3/uL Basophils # (Auto) 0.0 0.0-0.1 10^3/uL Sodium Level 140 135-145 MMOL/L Potassium Level 4.7 3.6-5.0 MMOL/L Chloride Level 105 98-107 MMOL/L Carbon Dioxide Level 22 21-32 MMOL/L Anion Gap 13 5-14 MMOL/L Blood Urea Nitrogen 17 7-18 MG/DL Creatinine 0.70 0.60-1.30 MG/DL Estimat Glomerular Filtration Rate > 60 BUN/Creatinine Ratio 24 Glucose Level 101 70-105 MG/DL Calcium Level 9.8 8.5-10.1 MG/DL Corrected Calcium 10.0 8.5-10.1 MG/DL Total Bilirubin 0.8 0.1-1.0 MG/DL Aspartate Amino Transf (AST/SGOT) 23 5-34 U/L Alanine Aminotransferase (ALT/SGPT) 15 0-55 U/L Alkaline Phosphatase 103 40-136 U/L Total Protein 6.8 6.4-8.2 GM/DL Albumin 3.7 3.2-4.5 GM/DL My Orders Orders - ADRIEL BENITO Alprazolam Tablet (Xanax Tablet) (09/26/18 12:37) Cbc With Automated Diff (09/26/18 13:00) Comprehensive Metabolic Panel (09/26/18 13:00) Medications Given in ED Current Medications Medications Dose Ordered Sig/Benson Route Start Time Stop Time Status Last Admin Dose Admin Alprazolam 0.5 mg STK-MED ONCE .ROUTE 09/26/18 12:37 09/26/18 12:39 DC 09/26/18 12:41 0.5 MG Vital Signs/I&O 09/26/18 09/26/18 12:15 16:14 Temp 97.2 Pulse 102 88 Resp 18 18 B/P (MAP) 137/104 (115) 132/78 (96) Pulse Ox 97 97 Capillary Refill : Less Than 3 Seconds Blood Pressure Mean: 115 Progress Note : Time: 12:30 Progress Note Patient seen and evaluated, recommended labs and reevaluation. Will give Xanax 0.25 mg by mouth for anxiety. 1330 labs essentially normal, patient much calmer. Patient spoke with the head of training and development, until she fell asleep. 1430 patient resting in no distress, eyes closed. [address] Aragon by phone, agreed with resuming the Xanax for the patient when necessary. Discharge instructions written for long-term care facility. Departure Impression Primary Impression: Anxiety Additional Impression: Pressure ulcer of coccygeal region, stage 2 Disposition: 03 XFER SNF Condition: Improved Departure-Patient Inst. Decision time for Depature: 14:45 Referrals: SHANNON ARAGON MD (PCP/Family) Primary Care Physician Patient Instructions: Panic Disorder (DC) Add. Discharge Instructions: Keep pressure off coccyx, change positions every 2 hours. Wound care per Sal Patterson APRN. Increase oral intake of water. Use Xanax every 8 hours as needed for anxiety. Return to emergency department for new, acute health care problems. All discharge instructions reviewed with patient and/or family. Voiced understanding. Scripts Alprazolam (Xanax) 0.25 Mg Tablet 0.25 MG PO Q6H, #30 TAB 2 Refills Prov: ADRIEL BENITO 09/26/18 Copy Copies To 1: SHANNON ARAGON MD Copies To 2: SAL PATTERSON APRN, AMY ARNP Sep 26, 2018 15:09
[2018-09-26 16:14] VITALS: BP 132/78
== END 2018-09-26 16:10 | disposition home or self-care (01) ==
LOC: EDUNIT# 12:10 → ER 12:11
DX: F41.9 Anxiety disorder, unspecified (principal); L89.152 Pressure ulcer of sacral region, stage 2
CPT/HCPCS: 36415; 80053; 85025; 99283

== ENCOUNTER → 2018-10-05 | Outpatient (CLI) | payer MEDICARE ==
[~2018-10-05] MED LIST changes: +ALPR0.25 PO
== END ==
LOC: WOUNDCARE 14:14
PROVIDERS: ATTEND Orthopaedic Surgery Hand Surgery
DX: L89.154 Pressure ulcer of sacral region, stage 4 (principal); L89.890 Pressure ulcer of other site, unstageable; L89.612 Pressure ulcer of right heel, stage 2
CPT/HCPCS: 11042

== ENCOUNTER → 2018-10-05 | Outpatient (CLI) | payer MEDICARE ==
--- NOTE | 2018-10-05 16:56 | Diagnostic Imaging Report ---
INDICATION: Sacral pressure ulcer. COMPARISON: None. FINDINGS: Frontal and lateral radiographic views of the pelvis were obtained. Note is made of lucency projecting over the soft tissues posterior to the pelvis on the lateral view. This could be on the basis of soft tissue emphysema, although superimposition of otherwise normal structures cannot be excluded. No lytic or blastic osseous lesions of the sacrum or coccyx are identified, although evaluation is suboptimal with radiographic technique. There are advanced degenerative changes of the lower lumbar spine, bilateral hips, as well as bilateral SI joints. No acute fracture or dislocation is seen. No unexpected radiopaque foreign bodies are identified. IMPRESSION: 1. No distinct osteolytic lesion of the sacrum or coccyx. However, osteomyelitis cannot be excluded based on radiographs alone. If there is concern for osteomyelitis, correlation with MRI is recommended. Dictated by: Dictated on workstation # [id number]
== END ==
LOC: RAD 15:04
PROVIDERS: ATTEND Orthopaedic Surgery Hand Surgery
DX: L89.154 Pressure ulcer of sacral region, stage 4 (principal); L89.890 Pressure ulcer of other site, unstageable
CPT/HCPCS: 72220

== ENCOUNTER → 2018-10-12 | Outpatient (CLI) | payer MEDICARE | LOC: WOUNDCARE 10:02 | PROVIDERS: ATTEND Orthopaedic Surgery Hand Surgery | DX: L89.154 Pressure ulcer of sacral region, stage 4 (principal); L89.890 Pressure ulcer of other site, unstageable; L89.612 Pressure ulcer of right heel, stage 2; L89.620 Pressure ulcer of left heel, unstageable | CPT/HCPCS: 11042 ==

== ENCOUNTER → 2018-10-19 | Outpatient (CLI) | payer MEDICARE | LOC: WOUNDCARE 12:46 | PROVIDERS: ATTEND Orthopaedic Surgery Hand Surgery | DX: L89.154 Pressure ulcer of sacral region, stage 4 (principal); L89.890 Pressure ulcer of other site, unstageable | CPT/HCPCS: 11042 ==

== ENCOUNTER → 2018-10-26 | Outpatient (CLI) | payer MEDICARE | LOC: WOUNDCARE 09:34 | PROVIDERS: ATTEND Nurse Practitioner | DX: L89.154 Pressure ulcer of sacral region, stage 4 (principal) | CPT/HCPCS: 11042; 87070; 87075; 87076; 87077; 87186; 87205 ==

== ENCOUNTER → 2018-11-03 | Outpatient (CLI) | payer MEDICARE | LOC: WOUNDCARE 13:15 | PROVIDERS: ATTEND Surgery | DX: L89.154 Pressure ulcer of sacral region, stage 4 (principal); R54 Age-related physical debility; R32 Unspecified urinary incontinence | CPT/HCPCS: 11042 ==

== ENCOUNTER 2018-11-12 16:04 | Emergency (ER) | payer MEDICARE ==
[~2018-11-12] VITALS: Ht 162.6 cm; Wt 54.4 kg
[2018-11-12 16:20] LABS: BASOPHILS % (AUTO) 0 % (0-10); EOSINOPHILS # (AUTO) 0.2 10^3/uL (0.0-0.3); EOSINOPHILS % (AUTO) 2 % (0-10); HEMATOCRIT 40 % (35-52); HEMOGLOBIN 12.8 G/DL (11.5-16.0); LYMPHOCYTES # (AUTO) 1.1 X 10^3 (1.0-4.0); LYMPHOCYTES % (AUTO) 14 % (12-44); MEAN CORPUSCULAR HEMOGLOBIN 30 PG (25-34); MEAN CORPUSCULAR HGB CONC 32 G/DL (32-36); MEAN CORPUSCULAR VOLUME 92 FL (80-99); MEAN PLATELET VOLUME 10.2 FL (7.4-10.4); MONOCYTES # (AUTO) 1.1 X 10^3 (0.0-1.0); MONOCYTES % (AUTO) 15 % (0-12); NEUTROPHILS # (AUTO) 5.2 X 10^3 (1.8-7.8); NEUTROPHILS % (AUTO) 68 % (42-75); PLATELET COUNT 260 10^3/uL (130-400); RED BLOOD COUNT 4.32 10^6/uL (4.35-5.85); RED CELL DISTRIBUTION WIDTH 14.8 % (10.0-14.5); WHITE BLOOD COUNT 7.6 10^3/uL (4.3-11.0)
[2018-11-12 16:21] LABS: BILIRUBIN,URINE NEGATIVE (NEGATIVE); CLARITY,URINE CLEAR; COLOR,URINE YELLOW; GLUCOSE, URINE (UA) NEGATIVE (NEGATIVE); KETONES,URINE NEGATIVE (NEGATIVE); LEUKOCYTE ESTERASE ,URINE 3+ (NEGATIVE); NITRITE,URINE NEGATIVE (NEGATIVE); PH,URINE 6 (5-9); PROTEIN,URINE 2+ (NEGATIVE); UROBILINOGEN,URINE NORMAL (NORMAL)
--- OUTSIDE RECORDS SUMMARY | 2018-11-12 16:29 | XMS REPORT ---
Author Author SHANELLE RODRIGUEZ Organization [facility] Address [address] [place] [address] Care Team Providers Care Government Affairs Specialist Name Role Phone SHANELLE RODRIGUEZ Unavailable PROBLEMS Type Condition ICD9-CM Code WCZ06-SD Code Onset Dates Condition Status SNOMED Code Problem Depression F32.9 Active [id number] ALLERGIES No Information ENCOUNTERS Encounter Location Date Diagnosis [place] [id number] [place] [phone] Sep, Depression F32.9 [place] [id number] [place] [phone] Sep, [place] [id number] [place] [phone] Sep, [place] [id number] [place] [phone] Sep, IMMUNIZATIONS No Known Immunizations SOCIAL HISTORY Never Assessed REASON FOR VISIT medication reconciliation--NM request PLAN OF CARE VITAL SIGNS MEDICATIONS Medication Instructions Dosage Frequency Start Date End Date Duration Status Lexapro 10 MG Orally Once a day 1 tablet 24h Sep, 30 day(s) Active RESULTS No Results PROCEDURES No Known procedures INSTRUCTIONS MEDICATIONS ADMINISTERED No Known Medications MEDICAL (GENERAL) HISTORY Type Description Date Medical History rhabdomyolysis Medical History sepsis Medical History pain Medical History elevated white blood cell Medical History dementia w/o behavior disturbance Medical History abnormalities of gait Medical History muscle weakness Medical History hypothyroidism Medical History insomnia Medical History pressure ulcer sacral
--- OUTSIDE RECORDS SUMMARY | 2018-11-12 16:29 | XMS REPORT ---
Author Author SHANELLE RODRIGUEZ Organization [facility] Address [address] [place] [address] Care Team Providers Care Market Development Trainer Name Role Phone SHANELLE RODRIGUEZ Unavailable PROBLEMS Unknown Problems ALLERGIES No Information ENCOUNTERS Encounter Location Date Diagnosis [facility] [address] [facility] [id number] [address] Sep, [facility] [address] [place] [id number] [address] Sep, IMMUNIZATIONS No Known Immunizations SOCIAL HISTORY Never Assessed REASON FOR VISIT residential PLAN OF CARE VITAL SIGNS MEDICATIONS Unknown Medications RESULTS No Results PROCEDURES No Known procedures INSTRUCTIONS MEDICATIONS ADMINISTERED No Known Medications
--- OUTSIDE RECORDS SUMMARY | 2018-11-12 16:29 | XMS REPORT ---
Author Author SHANELLE RODRIGUEZ Organization [facility] Address [address] [place] [address] Care Team Providers Care Bean Roaster Name Role Phone SHANELLE RODRIGUEZ Unavailable PROBLEMS Unknown Problems ALLERGIES No Information ENCOUNTERS Encounter Location Date Diagnosis [facility] [address] [address] Sep, [facility] [address] [address] Sep, [facility] [address] [place] [address] Sep, IMMUNIZATIONS No Known Immunizations SOCIAL HISTORY Never Assessed REASON FOR VISIT Mcfp PLAN OF CARE VITAL SIGNS MEDICATIONS Medication Instructions Dosage Frequency Start Date End Date Duration Status Duragesic-12 12 MCG/HR Transdermal every 72 hours 1 patch to skin Sep 30 days Active Lexapro 10 MG Orally Once a day at hs 1 tablet Sep, 30 day(s ) Active RESULTS No Results PROCEDURES No Known [...]
[2018-11-12 16:30] LABS: BACTERIA,URINE NEGATIVE /HPF; SQUAMOUS EPITHELIAL CELL,UR 0-2 /HPF
[2018-11-12] MEDS ORDERED: FENT1PAT6 TD (16:38)
[2018-11-12] MEDS ORDERED: ESCI10TA PO (16:38)
[2018-11-12 16:41] LABS: ALANINE AMINOTRANSFERASE 12 U/L (0-55); ALBUMIN 3.5 GM/DL (3.2-4.5); ALKALINE PHOSPHATASE 105 U/L (40-136); BILIRUBIN,TOTAL 0.5 MG/DL (0.1-1.0); BUN/CREATININE RATIO 20; CALCIUM 9.2 MG/DL (8.5-10.1); CARBON DIOXIDE 23 MMOL/L (21-32); CHLORIDE 107 MMOL/L (98-107); CREATININE SERUM 0.83 MG/DL (0.60-1.30); GFR ESTIMATED > 60; GLUCOSE 110 MG/DL (70-105); SODIUM 142 MMOL/L (135-145); TOTAL PROTEIN 6.3 GM/DL (6.4-8.2)
--- NOTE | 2018-11-12 17:08 | Diagnostic Imaging Report ---
INDICATION: Altered mental status. EXAMINATION: Chest, 11/12/2018. COMPARISON: 08/28/2018. FINDINGS: The heart is prominent. Pulmonary vasculature is congested. Increased perihilar opacity is seen, bilaterally, perhaps due to developing edema. A more focal infiltrate in the right infrahilar region is possible. No pneumothorax is seen. No effusions or acute osseous abnormality appreciated. IMPRESSION: 1. Cardiomegaly and pulmonary vascular congestion. 2. Right infrahilar infiltrate is suspected. Followup recommended to assure complete resolution. Other findings as above. Dictated by: Dictated on workstation # [id number]
--- NOTE | 2018-11-12 17:11 | Diagnostic Imaging Report ---
INDICATION: Altered mental status. Pain. EXAMINATION: Pelvis, 11/12/2018. FINDINGS: Single view pelvis demonstrates marked degenerative findings in both hips with narrowing, spurring and subchondral cystic change as well as sclerosis. Findings are worse on the left. No acute fracture is seen on this view only. Osteopenia noted. Degenerative findings in lower lumbar region. Tubular appearing area or linear density seen along the midline of the pelvis is perhaps a Herndon catheter but clinical correlation is recommended. 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 A definite acute fracture is not seen. If there is persistent pain or patient cannot bear weight, further imaging would be recommended. Other findings as above. Dictated by: Dictated on workstation # [id number]
--- NOTE | 2018-11-12 17:29 | NUR ---
via [facility] contacted for pt transport at this time.
[2018-11-12] MEDS ORDERED: AZITHROMYCIN 250 MG TAB (ZITHROMAX) PO ONE (17:30)
[2018-11-12] MEDS ORDERED: cefTRIAXone FOR IV USE 1,000 MG in NS (IVPB) 50 ML IV ONE (17:30)
--- NOTE | 2018-11-12 17:37 | ED General ---
General Chief Complaint: Altered Mental Status Stated Complaint: ALTERED MENTAL STATUS Nursing Triage Note: pt presents to ed via ems from [facility] for increased confusion, generalized weakness, and sliding off bed this am. pt denies any injury but reports pain to r foot near pressure ulcer. Nursing Sepsis Screen: No Definite Risk Source of Information: Patient Exam Limitations: No Limitations History of Present Illness Date Seen by Provider: Nov 12, 2018 Time Seen by Provider: 16:05 Initial Comments This 88-year-old woman is brought to the emergency room via EMS from [facility] with concerns about increased confusion and weakness. She reportedly wiggled out of her bed. There is no reported injury and patient denies any pain. Patient seems delightful a demented and confused. She is having some hallucinations. EMS states family reported the last time she behaved this way she had a urinary tract infection. She is afebrile with unremarkable vital signs. Patient is an soft boots for heel wounds. Skin presently appears intact. Allergies and Home Medications Allergies Coded Allergies: No Known Drug Allergies (Unverified , 08/27/18) Home Medications Acetaminophen 500 Mg Tablet, 500 MG PO Q6H PRN for PAIN-MILD Prescribed by: IMER NIX on 08/31/18 1146 Alprazolam 0.25 Mg Tablet, 0.25 MG PO Q6H Prescribed by: ADRIEL BENITO on 09/26/18 1509 Fentanyl 1 Each Patch.td72, 12 MCG TD Q72H, (Reported) Levothyroxine Sodium 75 Mcg Tablet, 75 MCG PO DAILY, (Reported) Patient Home Medication List Home Medication List Reviewed: Yes Review of Systems Review of Systems Constitutional: no symptoms reported EENTM: no symptoms reported Respiratory: no symptoms reported Cardiovascular: no symptoms reported Gastrointestinal: no symptoms reported Genitourinary: no symptoms reported : No Musculoskeletal: no symptoms reported Skin: see HPI Psychiatric/Neurological: See HPI Hematologic/Lymphatic: No Symptoms Reported Immunological/Allergic: no symptoms reported Past Qkjnmgd-Uveloe-Epoobe Hx Past Med/Social Hx: Reviewed and Corrections made Patient Social History Alcohol Use: Denies Use Recreational Drug Use: No Smoking Status: Never a Smoker Recent Foreign Travel: No Contact w/Someone Who Travel: No Recent Infectious Disease Expo: No Recent Hopitalizations: Yes Physical Abuse: No Sexual Abuse: No Mistreated: No Fear: No Past Medical History Surgeries: No Respiratory: No Cardiac: Yes Atrial Fibrillation Neurological: Yes Dementia Genitourinary: No Gastrointestinal: No Chronic Constipation Musculoskeletal: No (muscle weakness) Endocrine: Yes Hypothyroidsim HEENT: No Cancer: No Psychosocial: No Integumentary: Yes (pressure ulcers ) Blood Disorders: No Family Medical History Patient reports no known family medical history. Physical Exam Vital Signs Vital Signs - First Documented 11/12/18 16:17 Temp 97.9 Pulse 70 Resp 18 B/P (MAP) 133/76 (95) Pulse Ox 97 Capillary Refill : Less Than 3 Seconds Height, Weight, BMI Height: 5'4.00" Weight: 120lbs. 11.2oz. 54.453744on; 18.3 BMI Method:Stated General Appearance: No Apparent Distress, WD/WN, Thin HEENT: PERRL/EOMI, Normal ENT Inspection, Other (oropharynx somewhat dry) Neck: Normal Inspection Respiratory: Lungs Clear, Normal Breath Sounds, No Accessory Muscle Use, No Respiratory Distress Cardiovascular: Regular Rate, Rhythm, No Murmur Gastrointestinal: Normal Bowel Sounds, Non Tender, Soft Extremity: Other (mild erythema and edema of the feet bilaterally. Skin is intact.) Neurologic/Psychiatric: Alert, Other (disoriented with occasional hallucinations) Skin: Normal Color, Warm/Dry, Erythema (of the heels) Progress/Results/Core Measures Suspected Sepsis Recent Fever Within 48 Hours: No Infection Criteria Present: None New/Unexplained Altered Menta: Yes Sepsis Screen: No Definite Risk SIRS Temperature:97.9 Pulse: 70 Respiratory Rate: 18 Laboratory Tests 11/12/18 16:10: White Blood Count 7.6 Blood Pressure 133 /76 Mean: 95 Laboratory Tests 11/12/18 16:10: Creatinine 0.83, Platelet Count 260, Total Bilirubin 0.5 Results/Orders Lab Results Laboratory Tests Test 11/12/18 16:10 Range/Units White Blood Count 7.6 4.3-11.0 10^3/uL Red Blood Count 4.32 L 4.35-5.85 10^6/uL Hemoglobin 12.8 11.5-16.0 G/DL Hematocrit 40 35-52 % Mean Corpuscular Volume 92 80-99 FL Mean Corpuscular Hemoglobin 30 25-34 PG Mean Corpuscular Hemoglobin Concent 32 32-36 G/DL Red Cell Distribution Width 14.8 H 10.0-14.5 % Platelet Count 260 130-400 10^3/uL Mean Platelet Volume 10.2 7.4-10.4 FL Neutrophils (%) (Auto) 68 42-75 % Lymphocytes (%) (Auto) 14 12-44 % Monocytes (%) (Auto) 15 H 0-12 % Eosinophils (%) (Auto) 2 0-10 % Basophils (%) (Auto) 0 0-10 % Neutrophils # (Auto) 5.2 1.8-7.8 X 10^3 Lymphocytes # (Auto) 1.1 1.0-4.0 X 10^3 Monocytes # (Auto) 1.1 H 0.0-1.0 X 10^3 Eosinophils # (Auto) 0.2 0.0-0.3 10^3/uL Basophils # (Auto) 0.0 0.0-0.1 10^3/uL Urine Color YELLOW Urine Clarity CLEAR Urine pH 6 5-9 Urine Specific [place] 1.025 H 1.016-1.022 Urine Protein 2+ H NEGATIVE Urine Glucose (UA) NEGATIVE NEGATIVE Urine Ketones NEGATIVE NEGATIVE Urine Nitrite NEGATIVE NEGATIVE Urine Bilirubin NEGATIVE NEGATIVE Urine Urobilinogen NORMAL NORMAL MG/DL Urine Leukocyte Esterase 3+ H NEGATIVE Urine RBC (Auto) 2+ H NEGATIVE Urine RBC 2-5 H /HPF Urine WBC 5-10 H /HPF Urine Squamous Epithelial Cells 0-2 /HPF Urine Crystals NONE /LPF Urine Bacteria NEGATIVE /HPF Urine Casts NONE /LPF Urine Mucus NEGATIVE /LPF Urine Culture Indicated YES Sodium Level 142 135-145 MMOL/L Potassium Level 4.0 3.6-5.0 MMOL/L Chloride Level 107 98-107 MMOL/L Carbon Dioxide Level 23 21-32 MMOL/L Anion Gap 12 5-14 MMOL/L Blood Urea Nitrogen 17 7-18 MG/DL Creatinine 0.83 0.60-1.30 MG/DL Estimat Glomerular Filtration Rate > 60 BUN/Creatinine Ratio 20 Glucose Level 110 H 70-105 MG/DL Calcium Level 9.2 8.5-10.1 MG/DL Corrected Calcium 9.6 8.5-10.1 MG/DL Total Bilirubin 0.5 0.1-1.0 MG/DL Aspartate Amino Transf (AST/SGOT) 22 5-34 U/L Alanine Aminotransferase (ALT/SGPT) 12 0-55 U/L Alkaline Phosphatase 105 40-136 U/L Total Creatine Kinase 63 29-168 U/L C-Reactive Protein High Sensitivity 1.52 H 0.00-0.50 MG/DL Total Protein 6.3 L 6.4-8.2 GM/DL Albumin 3.5 3.2-4.5 GM/DL My Orders Orders - FLORES ARAUZ MD Chest 1 View, Ap/Pa Only (11/12/18 16:12) Cbc With Automated Diff (11/12/18 16:12) Comprehensive Metabolic Panel (11/12/18 16:12) Hs C Reactive Protein (11/12/18 16:12) Ua Culture If Indicated (11/12/18 16:12) Saline Lock/Iv-Start (11/12/18 16:12) Pelvis (11/12/18 16:12) Urine Culture (11/12/18 16:10) Creatine Kinase (11/12/18 16:43) Ceftriaxone For Iv Use (Rocephin For I (11/12/18 17:30) Azithromycin Tablet (Zithromax Tablet) (11/12/18 17:30) Thyroid Stimulating Hormone (11/12/18 17:21) Free T4 (Free Thyroxine) (11/12/18 17:21) Medications Given in ED Current Medications Medications Dose Ordered Sig/Benson Route Start Time Stop Time Status Last Admin Dose Admin Azithromycin 500 mg ONCE ONCE PO 11/12/18 17:30 11/12/18 17:31 11/12/18 17:29 500 MG Ceftriaxone Sodium 1000 mg/ Sodium Chloride 50 ml @ 100 mls/hr ONCE ONCE IV 11/12/18 17:30 11/12/18 17:59 11/12/18 17:29 100 MLS/HR Vital Signs/I&O 11/12/18 16:17 Temp 97.9 Pulse 70 Resp 18 B/P (MAP) 133/76 (95) Pulse Ox 97 Capillary Refill : Less Than 3 Seconds Blood Pressure Mean: 95 Progress Note : Progress Note Labs revealed no significant abnormalities. UA suggested urinary tract infection. There was questionable infiltrate on the chest x-ray. Patient was treated with Rocephin and azithromycin. A liter of IVF was infused as started by EMS. Patient was dismissed home after antibiotic treatment. Diagnostic Imaging Diagonstic Imaging: Xray Plain Films/CT/US/NM/MRI: chest Comments Chest x-ray viewed by me and report reviewed. See report below: NAME: LUIS DORANTES [facility] REC#: [id number] PT STATUS: REG ER : 1930 PHYSICIAN: FLORES ARAUZ MD ADMIT DATE: 11/12/18/ER Draft Date of Exam:11/12/18 CHEST 1 VIEW, AP/PA ONLY INDICATION: Altered mental status. EXAMINATION: Chest, 11/12/2018. COMPARISON: 08/28/2018. FINDINGS: The heart is prominent. Pulmonary vasculature is congested. Increased perihilar opacity is seen, bilaterally, perhaps due to developing edema. A more focal infiltrate in the right infrahilar region is possible. No pneumothorax is seen. No effusions or acute osseous abnormality appreciated. IMPRESSION: 1. Cardiomegaly and pulmonary vascular congestion. 2. Right infrahilar infiltrate is suspected. Followup recommended to assure complete resolution. Other findings as above. Dictated on workstation # [id number] Dict: 11/12/18 1658 Trans: 11/12/[address] [facility] [id number] Interpreted by: LINUS WALLER MD Diagonstic Imaging: Xray Plain Films/CT/US/NM/MRI: pelvis Comments NAME: LUIS DORANTES [facility] REC#: [id number] PT STATUS: REG ER : 1930 PHYSICIAN: FLORES ARAUZ MD ADMIT DATE: 11/12/18/ER Draft Date of Exam:11/12/18 PELVIS INDICATION: Altered mental status. Pain. EXAMINATION: Pelvis, 11/12/2018. FINDINGS: Single view pelvis demonstrates marked degenerative findings in both hips with narrowing, spurring and subchondral cystic change as well as sclerosis. Findings are worse on the left. No acute fracture is seen on this view only. Osteopenia noted. Degenerative findings in lower lumbar region. Tubular appearing area or linear density seen along the midline of the pelvis is perhaps a Herndon catheter but clinical correlation is recommended. 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 A definite acute fracture is not seen. If there is persistent pain or patient cannot bear weight, further imaging would be recommended. Other findings as above. Dictated on workstation # [id number] Dict: 11/12/18 1659 Trans: 11/12/[address] [facility] [id number] Interpreted by: LINUS WALLER MD Departure Impression Primary Impression: Urinary tract infection Qualified Codes: N39.0 - Urinary tract infection, site not specified Additional Impressions: Disoriented Pulmonary infiltrate Disposition: HOME, SELF-CARE Condition: Improved Departure-Patient Inst. Decision time for Depature: 17:30 Referrals: SHANNON ARAGON MD (PCP/Family) Primary Care Physician Patient Instructions: Urinary Tract Infection, Adult (DC) Add. Discharge Instructions: Encourage plenty of clear liquids. Complete antibiotics as prescribed. Follow-up with your primary care provider middle of this week to review urine culture results and to arrange for repeat chest x-ray. Return to care if symptoms are worsening. All discharge instructions reviewed with patient and/or family. Voiced understanding. Scripts Azithromycin (Azithromycin) 250 Mg Tablet 250 MG PO DAILY, #4 TAB Prov: FLORES ARAUZ MD 11/12/18 Cephalexin (Keflex) 500 Mg Capsule 500 MG PO TID, #20 CAP Prov: FLORES ARAUZ MD 11/12/18 Copy Copies To 1: SHANNON ARAGON MD, JOSHUA T MD Nov 12, 2018 17:37
[2018-11-12] MEDS ORDERED: AZIT250T12 PO (17:40)
[2018-11-12] MEDS ORDERED: CEPH-507 PO (17:40)
[2018-11-12 17:56] LABS: FREE T4 (FREE THYROXINE) 1.15 NG/DL (0.70-1.48)
--- NOTE | 2018-11-12 18:30 | NUR ---
[facility] contacted for update on pt transport.
[2018-11-12] MEDS ORDERED: LORazepam 0.5 MG (ATIVAN) TABLET PO ONE (18:45)
[2018-11-12 19:42] VITALS: BP 160/88
== END 2018-11-12 19:43 | disposition home or self-care (01) ==
LOC: EDUNIT# 16:04 → ER 16:05
DX: N39.0 Urinary tract infection, site not specified (principal); R91.8 Other nonspecific abnormal finding of lung field; R41.0 Disorientation, unspecified; I48.91 Unspecified atrial fibrillation; F03.90 Unspecified dementia, unspecified severity, without behavioral disturbance, psychotic disturbance, mood disturbance, and anxiety; E03.9 Hypothyroidism, unspecified; Z87.19 Personal history of other diseases of the digestive system
CPT/HCPCS: 36415; 71045; 72170; 80053; 81000; 82550; 84439; 84443; 85025; 86141; 87088

== ENCOUNTER → 2018-11-13 | Outpatient (CLI) | payer MEDICARE ==
[~2018-11-13] MED LIST changes: +ACET-2267 PO; +ALPR0.5T7 PO; +ASCO-262 PO; +AZIT250T12 PO; +CEPH-506 PO; +CEPH-507 PO; +DICL100G18 TP; +ESCI10TA PO; +FENT1PAT6 TD; +MAGN400O7 PO; +MELA3TAB PO; +MULT-166 PO; +SIME125T50 PO
== END ==
LOC: WOUNDCARE 10:34
PROVIDERS: ATTEND Surgery
DX: L89.154 Pressure ulcer of sacral region, stage 4 (principal); R54 Age-related physical debility; R32 Unspecified urinary incontinence
CPT/HCPCS: 11042; 87070; 87075; 87077; 87205

== ENCOUNTER 2018-11-17 07:50 | Inpatient (IN) | payer MEDICARE | END 2018-11-21 14:55 | disposition other institution (70) | LOC: ER 07:50 → 4TH 11:30 | DX: J18.1 Lobar pneumonia, unspecified organism (principal); R45.1 Restlessness and agitation; R44.1 Visual hallucinations; L89.154 Pressure ulcer of sacral region, stage 4; E03.9 Hypothyroidism, unspecified; I48.91 Unspecified atrial fibrillation; F03.90 Unspecified dementia, unspecified severity, without behavioral disturbance, psychotic disturbance, mood disturbance, and anxiety; K59.09 Other constipation; Z66 Do not resuscitate; Z87.440 Personal history of urinary (tract) infections ==

== ENCOUNTER → 2018-12-06 | Outpatient (CLI) | payer MEDICARE ==
[~2018-12-06] MED LIST changes: +CEFD300C3 PO
== END ==
LOC: WOUNDCARE 13:22
PROVIDERS: ATTEND Surgery
DX: L89.154 Pressure ulcer of sacral region, stage 4 (principal); E44.1 Mild protein-calorie malnutrition; R54 Age-related physical debility; R32 Unspecified urinary incontinence
CPT/HCPCS: 11042